=== PATIENT | male | born 1990 | race Caucasian/White ===

== ENCOUNTER 2021-04-20 19:23 | Emergency (ER) | payer BC ==
[~2021-04-20] VITALS: Ht 172.7 cm; Wt 122.5 kg
[~2021-04-20 19:23] MED LIST: MOBIC15 MG PO; MOBIC7.5 MG PO; NOHOMEMEDICATIONS; NORCO 5-325 TA1 EACH PO; PERCOCET PO; TAMSULOSIN HCL0.4 MG PO; VALIUM5 MG PO; ZOFRAN ODT4 MG PO
[2021-04-20] MEDS ORDERED: COZAAR 25 MG TA25 M1 PO (19:27)
[2021-04-20] MEDS ORDERED: LYRICA20 MG/1 ML PO (19:27)
[2021-04-20] MEDS ORDERED: VITAMIN C60 MG PO (19:28)
[2021-04-20 20:06] LABS: ABSOLUTE LYMPHOCYTES 0.6 thou/uL (0.8-5.3); ABSOLUTE MONOCYTES 0.4 thou/uL (0.0-1.2); BASOPHILS 0.5 %; HEMOGLOBIN 14.7 gm/dL (14.0-18.0); LYMPHOCYTES 7.3 %; MCH 28.3 pg (26.0-34.0); MCHC 33.4 g/dL (28.0-37.0); MCV 84.7 fL (80.0-100.0); MONOCYTES 5.2 %; MPV 10.3 fl. (7.2-11.1); NUCLEATED RBCS 0 /100WBC; PLATELET COUNT* 177 thou/uL (150-400); RBC 5.19 mil/uL (4.50-6.00); RDW-CV 12.8 % (10.5-14.5); WBC 8.1 thou/uL (4.0-11.0)
[2021-04-20 20:09] LABS: INFLUENZA A ANTIGEN Negative (Negative); INFLUENZA B ANTIGEN Negative (Negative)
[2021-04-20 20:20] LABS: CALCIUM 8.2 mg/dL (8.5-10.1); CREATININE 1.1 mg/dL (0.6-1.3); POTASSIUM 3.6 mmol/L (3.5-5.1)
[2021-04-20 20:24] LABS: ALBUMIN 3.5 g/dL (3.4-5.0); MAGNESIUM 1.6 mg/dL (1.8-2.4); TOTAL BILIRUBIN 0.5 mg/dL (<0.1-1.0)
[2021-04-20] MEDS ORDERED: ZOFRAN ODT4 MG PO (21:56)
[2021-04-20 22:09] VITALS: BP 114/71
--- NOTE | 2021-04-21 10:13 | EKG ---
[place] [address] ELECTROCARDIOGRAM REPORT Name: JOLANTA HARRIS Room: [facility]#: [id number] Admission: 04/20/21 Attend Phys: Discharge: 04/20/21 Date of : 86 Date of Service: 04/20/211929 Report #: [id number] THIS REPORT FOR: //name// [facility] ED Test Date: 2021-04-20 Test Time: 19:30:05 Pat Name: JOLANTA HARRIS Department: Room: Gender: Speech Therapy Assistant: : 1990 Requested By: Angela Nelson Order Number: [id number] MD: Bruce Loaiza Measurements Intervals [place] Rate: 101 P: 32 MI: 157 QRS: 73 QRSD: 78 T: 35 QT: 316 QTc: 410 Interpretive Statements Sinus tachycardia Borderline low voltage, extremity leads No previous ECG available for comparison Electronically Signed On 04-21-2021 10:13:52 [employer] TECHNICIAN by Bruce Loaiza [email or web address] <ELECTRONICALLY SIGNED> By: Bruce Loaiza MD, [facility] 04/21/213 29 29 Bruce Loaiza MD, FACC /EPI
== END 2021-04-20 22:10 | disposition home or self-care (01) ==
LOC: M.ERS 19:23
PROVIDERS: Emergency Medicine
DX: B34.9 Viral infection, unspecified (principal); Z20.822 Contact with and (suspected) exposure to COVID-19; R19.7 Diarrhea, unspecified; Z79.899 Other long term (current) drug therapy